=== PATIENT | male | born 1995 | race Caucasian/White ===

== ENCOUNTER 2022-05-25 14:56 | Observation (INO) ==
[2022-05-25 15:34] LABS: Basophils # (auto) 0.02 K/uL (0-0.2); Basophils % (auto) 0.2 %; Eosinophils # (auto) 0.02 K/uL (0-0.50); Eosinophils % (auto) 0.2 %; Hemoglobin 14.9 g/dl (14.0-18.0); Immature Granulocytes # (auto) 0.02 K/uL (0.00-0.02); Immature Granulocytes % (auto) 0.2 %; Lymphocytes # (auto) 1.17 K/uL (1.2-3.4); Lymphocytes % (auto) 13.9 %; Mean Corpuscular Hemoglobin 30.5 pg (25.0-34.0); Mean Corpuscular Hgb Conc 34.7 g/dL (32.0-36.0); Mean Corpuscular Volume 88.1 fL (80.0-100.0); Mean Platelet Volume 10.9 fL (9.4-12.4); Monocytes # (auto) 0.52 K/uL (0.24-0.82); Monocytes % (auto) 6.2 %; Neutrophils # (auto) 6.65 K/uL (1.4-6.5); Neutrophils % (auto) 79.3 %; Platelet Count 209 K/uL (130-400); RDW Coefficient of Variation 12.4 % (11.5-14.5); RDW Standard Deviation 39.9 fL (36.4-46.3); Red Blood Count 4.88 M/uL (4.63-6.08)
[2022-05-25 15:59] LABS: Albumin Globulin Ratio 1.8 (0.9-2); Albumin Level 5.1 gm/dl (3.4-5.0); BUN Creatinine Ratio 16.5 (10-20); Bilirubin,Total 0.7 mg/dl (0.2-1.0); Creatinine Clr Calc Pharmacy 125.3 ml/min; Est GFR (African American) 141.3 ml/min; Globulin 2.8 gm/dl (2.5-4.0); Total Protein 7.9 gm/dl (6.0-8.3)
[2022-05-25] MEDS ORDERED: KETOROLAC TROMETHAMINE 15 MG/ML VIAL IV ONE (16:19)
[2022-05-25] MEDS ORDERED: GI COCKTAIL ED USE PO ONE (16:19)
[2022-05-25] MEDS ORDERED: SODIUM CHLORIDE 0.9% 1000ML 2,000 ML IV ONE (16:19)
--- NOTE | 2022-05-25 16:22 | Emergency Department Note ---
Impression & Plan Acute cholecystitis, Abdominal pain ED Provider Note NAME: ASHUTOSH DUNN AGE: 26 SEX: M : 1995 ARRIVES VIA: Walk-In INFORMANT: Patient ED PROVIDER(S): Misha Avalos DO CHIEF COMPLAINT: abdominal pain HPI: Patient is a 26-year-old male who presents to the ER for right upper quadrant abdominal pain which has been present for the past several weeks off and on. Started this morning after eating around 9am. Patient denies any headache or change in vision. No chest pain or shortness of breath. No black stools or dark tarry stools. No bright red blood per rectum. Does admit to drinking alcohol fairly regularly as he works at the [email or web address]. He notes it is worse after fatty foods or alcohol. Sometimes it gets worse with drinking just regular liquids. No dysuria, urgency, or frequency. No other exacerbating or remitting factors. ROS: See above HPI for pertinent positives & negatives. A total of 10 systems reviewed and were otherwise negative. PAST MEDICAL HISTORY:See Below PAST SURGICAL HISTORY:See Below FAMILY HISTORY:See Below SOCIAL HISTORY:See Below HOME MEDICATIONS:See Below ALLERGIES:See Below VITALS:See Below PHYSICAL EXAMINATION: GENERAL: Sitting up in bed, alert, well appearing, well nourished, no distress, non-toxic EYE EXAM: normal conjunctiva. OROPHARYNX: no exudate, no erythema, lips, buccal mucosa, and tongue normal and mucous membranes are moist NECK: non-tender LUNGS: Clear to auscultation. Normal chest wall mechanics HEART: no murmurs, S1 normal and S2 normal ABDOMEN: abdomen soft, TTP in RUQ, normo-active bowel sounds, no masses, no rebound or guarding. BACK: Back is symmetrical on inspection and there is no deformity, no midline tenderness, no CVA tenderness. SKIN: no rashes and no bruising UPPER EXTREMITIES: upper extremities are grossly normal. LOWER EXTREMITIES: No pitting edema. NEURO EXAM: Normal sensorium, cranial nerves II-XII [grossly] intact, normal speech, no [gross] weakness of arms, no [gross] weakness of legs. [No drift. Finger to nose intact. Gross sensation intact.] MEDICAL DECISION MAKING: Patient is a 26-year-old male who presents ER for right upper quadrant abdominal pain. IV was established blood work was obtained. Labs showed no significant leukocytosis or anemia. BMP along with LFTs bilirubin and lipase was unremarkable. UA was clean. Ultrasound the abdomen pelvis shows a distended gallbladder with stone in the neck. He is acutely tender. He was given IV morphine and fluids. He was updated bedside. Discussed with general surgery who evaluated him at bedside and admitted him for further work-up. Discussed with Pt concerning signs and symptoms to watch out for. Pt was instructed to follow up with their PCP and discussed with the patient their option to return to the ED at anytime for persistent or worsening symptoms. The appropriate anticipatory guidance and out-patient management, including indications for return to the emergency department, were explained at length to the patient and understood. Triage Nursing notes reviewed. Limited review of prior medical records performed Vital Signs: reviewed and remarkable for no significant abnormalities Differential diagnosis: Differential diagnoses includes but is not limited to gastritis, peptic ulcer disease, GERD, gallbladder disease, pancreatitis, small bowel obstruction, acute coronary syndrome, pericarditis, ischemic bowel, irritable bowel disease, irritable bowel syndrome, appendicitis, diverticulitis, malignancy, hernia, urinary tract infection, torsion, perforation, trauma, infectious. ER treatment provided: See below Diagnostics interpreted by me: ECG: none Cardiac Monitoring: An order was placed for continuous cardiac monitoring. The monitor shows a rate of 60 with sinus rhythm. Laboratory studies: As stated above and show below. Imaging studies: Ultrasound as described above Consultation(s): Patient was seen and evaluated by Dr. Joey Yap and admitted for further workup Procedures: none Critical Care: None Past Med/Surg History Social History Smoking Status: Never smoker Feels Safe at Home: Yes Allergies Allergies Allergy/AdvReac Type Severity Reaction Status Date / Time No Known Allergies Allergy Unverified 05/25/22 17:55 Home Meds Home Medications Medication Instructions Recorded Confirmed No Known Home Medications 05/25/22 05/25/22 Results & Data (ED) Vital Signs Vital Signs - 24 hr 05/25/22 15:15 05/25/22 18:00 05/25/22 19:43 Temperature 36.9 C Temperature Source Oral Pulse Rate 72 Pulse Rate [Finger] 77 61 Pulse Rhythm [Finger] Regular Pulse Strength [Finger] Normal Respiratory Rate 18 17 18 Respiratory Effort / Characteristics Non-Labored Non-Labored Spontaneous Respiratory Depth Normal Normal Respiratory Pattern Regular Regular Blood Pressure 130/84 Blood Pressure [Right Arm] 127/66 143/94 H Blood Pressure Mean 99 Blood Pressure Mean [Right Arm] 86 110 Pulse Oximetry 98 97 98 Oxygen Delivery Method Room Air Room Air Sepsis Recent Fever Within 48 Hours No Sepsis New/Unexplained Change in Mental Status No Sepsis Action Taken by Nursing No Action Required 05/25/22 21:00 Temperature Temperature Source Pulse Rate Pulse Rate [Finger] 52 L Pulse Rhythm [Finger] Pulse Strength [Finger] Respiratory Rate 18 Respiratory Effort / Characteristics Non-Labored Spontaneous Respiratory Depth Normal Respiratory Pattern Regular Blood Pressure Blood Pressure [Right Arm] 130/77 Blood Pressure Mean Blood Pressure Mean [Right Arm] 94 Pulse Oximetry 98 Oxygen Delivery Method Room Air Sepsis Recent Fever Within 48 Hours Sepsis New/Unexplained Change in Mental Status Sepsis Action Taken by Nursing Laboratory Data Result diagrams: 05/25/22 15:23 05/25/22 15:23 Lab Results 05/25/22 05/25/22 05/25/22 Range/Units 15:23 15:23 16:19 WBC 8.40 (4.8-10.8) K/ul RBC 4.88 (4.63-6.08) M/uL Hgb 14.9 (14.0-18.0) g/dl Hct 43.0 (40.1-51.0) % MCV 88.1 (80.0-100.0) fL MCH 30.5 (25.0-34.0) pg MCHC 34.7 (32.0-36.0) g/dL RDW Std Deviation 39.9 (36.4-46.3) fL RDW Coeff of Marcela 12.4 (11.5-14.5) % Plt Count 209 (130-400) K/uL MPV 10.9 (9.4-12.4) fL Immature Gran % (Auto) 0.2 % Neut % (Auto) 79.3 % Lymph % (Auto) 13.9 % Ada % (Auto) 6.2 % Eos % (Auto) 0.2 % Baso % (Auto) 0.2 % Neut # (Auto) 6.65 H (1.4-6.5) K/uL Lymph # (Auto) 1.17 L (1.2-3.4) K/uL Ada # (Auto) 0.52 (0.24-0.82) K/uL Eos # (Auto) 0.02 (0-0.50) K/uL Baso # (Auto) 0.02 (0-0.2) K/uL Immature Gran # (Auto) 0.02 (0.00-0.02) K/uL Sodium 138 (136-145) mmol/L Potassium 4.0 (3.5-5.1) mmol/L Chloride 104 (98-107) mmol/L Carbon Dioxide 27 (21-32) mmol/L Anion Gap 7 (3-11) BUN 14 (6-23) mg/dl Creatinine 0.85 (0.6-1.4) mg/dl Est Cr Clr Drug Dosing 125.3 ml/min Est GFR ( Amer) 141.3 ml/min Est GFR (Non-Af Amer) 122.0 ml/min BUN/Creatinine Ratio 16.5 (10-20) Glucose 102 H (70-99(Fasting)) mg/dl Calcium 10.0 (8.5-10.1) mg/dl Total Bilirubin 0.7 (0.2-1.0) mg/dl AST 17 (13-39) U/L ALT 15 (7-52) U/L Alkaline Phosphatase 60 (34-104) U/L Total Protein 7.9 (6.0-8.3) gm/dl Albumin 5.1 H (3.4-5.0) gm/dl Globulin 2.8 (2.5-4.0) gm/dl Albumin/Globulin Ratio 1.8 (0.9-2) Lipase 13 (11-82) U/L Urine Color Yellow Urine Appearance Turbid A (Clear) Urine pH >= 9.0 H (4.5-7.5) Ur Specific [place] 1.017 (1.000-1.030) Urine Protein Negative (Negative) Urine Glucose (UA) Negative (Negative) Urine Ketones Negative (Negative) Urine Blood Negative (Negative) Urine Nitrite Negative (Negative) Urine Bilirubin Negative (Negative) Urine Urobilinogen Negative (Negative) Ur Leukocyte Esterase Negative (Negative) Urine WBC (Auto) 1-5 (0-5) /hpf Urine RBC (Auto) 0-4 (0-4) /hpf U Hyaline Cast (Auto) 1-5 (0-5) /lpf U Epithel Cells (Auto) 5-10 H (0-5) /lpf Urine Bacteria (Auto) Negative (Negative) SARS-CoV-2, RNA, NAAT (NEGATIVE) 05/25/22 Range/Units 17:45 WBC (4.8-10.8) K/ul RBC (4.63-6.08) M/uL Hgb (14.0-18.0) g/dl Hct (40.1-51.0) % MCV (80.0-100.0) fL MCH (25.0-34.0) pg MCHC (32.0-36.0) g/dL RDW Std Deviation (36.4-46.3) fL RDW Coeff of Marcela (11.5-14.5) % Plt Count (130-400) K/uL MPV (9.4-12.4) fL Immature Gran % (Auto) % Neut % (Auto) % Lymph % (Auto) % Ada % (Auto) % Eos % (Auto) % Baso % (Auto) % Neut # (Auto) (1.4-6.5) K/uL Lymph # (Auto) (1.2-3.4) K/uL Ada # (Auto) (0.24-0.82) K/uL Eos # (Auto) (0-0.50) K/uL Baso # (Auto) (0-0.2) K/uL Immature Gran # (Auto) (0.00-0.02) K/uL Sodium (136-145) mmol/L Potassium (3.5-5.1) mmol/L Chloride (98-107) mmol/L Carbon Dioxide (21-32) mmol/L Anion Gap (3-11) BUN (6-23) mg/dl Creatinine (0.6-1.4) mg/dl Est Cr Clr Drug Dosing ml/min Est GFR ( Amer) ml/min Est GFR (Non-Af Amer) ml/min BUN/Creatinine Ratio (10-20) Glucose (70-99(Fasting)) mg/dl Calcium (8.5-10.1) mg/dl Total Bilirubin (0.2-1.0) mg/dl AST (13-39) U/L ALT (7-52) U/L Alkaline Phosphatase (34-104) U/L Total Protein (6.0-8.3) gm/dl Albumin (3.4-5.0) gm/dl Globulin (2.5-4.0) gm/dl Albumin/Globulin Ratio (0.9-2) Lipase (11-82) U/L Urine Color Urine Appearance (Clear) Urine pH (4.5-7.5) Ur Specific [place] (1.000-1.030) Urine Protein (Negative) Urine Glucose (UA) (Negative) Urine Ketones (Negative) Urine Blood (Negative) Urine Nitrite (Negative) Urine Bilirubin (Negative) Urine Urobilinogen (Negative) Ur Leukocyte Esterase (Negative) Urine WBC (Auto) (0-5) /hpf Urine RBC (Auto) (0-4) /hpf U Hyaline Cast (Auto) (0-5) /lpf U Epithel Cells (Auto) (0-5) /lpf Urine Bacteria (Auto) (Negative) SARS-CoV-2, RNA, NAAT NEGATIVE (NEGATIVE) Administered Medications Discontinued Medications Al Hydrox/Mg Hydrox/Simethicone (Gi Cocktail Ed Use) 1 dose PO ONE ONE Stop: 05/25/22 16:20 Last Admin: 05/25/22 16:24 Dose: 1 dose Documented By: OAM Sodium Chloride (Nss 1000ml) 2,000 mls @ 999 mls/hr IV .Q2H1M ONE Stop: 05/25/22 18:19 Last Infusion: 05/25/22 18:55 Dose: 0 mls/hr Documented By: Admin: 05/25/22 16:24 Dose: 999 mls/hr Documented By: OAKeyla Cefoxitin Sodium (Mefoxin) 2,000 mg in 60 mls @ 100 mls/hr IV NOW STA Stop: 05/25/22 21:19 Last Infusion: 05/25/22 21:27 Dose: 0 mls/hr Documented By: Admin: 05/25/22 20:51 Dose: 100 mls/hr Documented By: AN Ketorolac Tromethamine (Ketorolac Tromethamine 15 Mg/Ml Vial) 15 mg IV NOW ONE Stop: 05/25/22 16:20 Last Admin: 05/25/22 16:24 Dose: 15 mg Documented By: OAKeyla Morphine Sulfate (Morphine Sulfate 10 Mg/Ml Carp/Vial) 6 mg IV NOW STA Stop: 05/25/22 17:42 Last Admin: 05/25/22 19:38 Dose: 6 mg Documented By: AN Ondansetron HCl (Ondansetron Inj 2 Mg/Ml 2 Ml Vial) 4 mg IV NOW STA Stop: 05/25/22 17:42 Last Admin: 05/25/22 19:38 Dose: 4 mg Documented By: AN Imaging Data Radiologist's Impression: Gallbladder Ultrasound 05/25/22 16:19 US gallbladder CLINICAL HISTORY: Right upper quadrant abdominal pain. COMPARISON STUDY: No previous studies for comparison. FINDINGS: Liver is sonographically normal. There is no biliary ductal dilatation. The common bile duct measures 5 mm in caliber. There are multiple gallstones within the gallbladder, including stones within the gallbladder neck. There is sludge within the gallbladder is well. Sonographic Hernandez sign could not be assessed for. Gallbladder is mildly distended. There is no gallbladder wall thickening. No pericholecystic fluid is present. Pancreatic body is normal. Head and tail are partially obscured. There is no right hydronephrosis. IMPRESSION: 1. Cholelithiasis including gallstones within the gallbladder neck. Mild gallbladder distention. No gallbladder wall thickening. Acute cholecystitis cannot be excluded. If indicated, a hepatobiliary scan could be obtained. 2. No biliary ductal dilatation. ACT 112: Negative or not required by law. Electronically signed by: Chris Bolton M.D. 05/25/2022 5:29 PM Discharge Plan Visit Data Chief Complaint: Abdominal Pain Stated Complaint: ABD PAIN ED Provider: Misha Avalos Discharge Problem: Acute cholecystitis, Abdominal pain Forms Stand Alone Forms: My [facility] [employer] Prescriptions Prescriptions: No Action No Known Home Medications Referrals Referrals: PCP,NO [Physician] -
[2022-05-25 16:32] LABS: Appearance Urine Turbid (Clear); Bacteria Urine Automated Negative (Negative); Bilirubin Urine Negative (Negative); Blood Urine Negative (Negative); Color Urine Yellow; Glucose Urine UA Negative (Negative); Ketones Urine Negative (Negative); Leukocyte Esterase Urine Negative (Negative); Nitrite Urine Negative (Negative); Protein Urine Negative (Negative); RBC Urine Automated 0-4 /hpf (0-4); Specific Gravity Urine 1.017 (1.000-1.030); Urobilinogen Urine Negative (Negative); pH Urine >= 9.0 (4.5-7.5)
--- NOTE | 2022-05-25 17:31 | Ultrasound Report ---
US gallbladder CLINICAL HISTORY: Right upper quadrant abdominal pain. COMPARISON STUDY: No previous studies for comparison. FINDINGS: Liver is sonographically normal. There is no biliary ductal dilatation. The common bile dionisio t measures 5 mm in caliber. There are multiple gallstones within the gallbladder, including stones wi thin the gallbladder neck. There is sludge within the gallbladder is well. Sonographic Hernandez sign co uld not be assessed for. Gallbladder is mildly distended. There is no gallbladder wall thickening. No pericholecystic fluid is present. Pancreatic body is normal. Head and tail are partially obscured. T here is no right hydronephrosis. IMPRESSION: 1. Cholelithiasis including gallstones within the gallbladder neck. Mild gallbladder distention. No g allbladder wall thickening. Acute cholecystitis cannot be excluded. If indicated, a hepatobiliary sca n could be obtained. 2. No biliary ductal dilatation. ACT 112: Negative or not required by law. Electronically signed by: Chris Bolton M.D. 05/25/2022 5:29 PM
[2022-05-25] MEDS ORDERED: ONDANSETRON INJ 2 MG/ML 2 ML VIAL IV STA (17:41)
[2022-05-25] MEDS ORDERED: MoRPHine SULFATE 10 MG/ML CARP/VIAL IV STA (17:41)
--- NOTE | 2022-05-25 18:28 | History & Physical Report ---
Date of Service May 25, 2022 Assessment & Plan (1) Acute cholecystitis: Plan: Plan is for laparoscopic cholecystectomy possible open cholecystectomy We will admit him to the hospital IV fluids pain medication antiemetics and antibiotics Will proceed tomorrow Patient may have clear liquids now and n.p.o. after midnight History of Present Illness Primary Care Provider: NO PCP 26-year-old male presenting the emergency room with right upper quadrant pain and tenderness for approximately 1 week off and on and now worse Work-up including ultrasound showing a distended gallbladder, with gallstones in the neck of the gallbladder Allergies Allergy/AdvReac Type Severity Reaction Status Date / Time No Known Allergies Allergy Unverified 05/25/22 17:55 Home Medications Medication Instructions Recorded Confirmed Type No Known Home Medications 05/25/22 05/25/22 History Past Med/Surg History Social History Smoking Status: Never smoker Feels Safe at Home: Yes Physical Exam Physical Exam: Patient does have some right upper quadrant tenderness His abdomen is otherwise flat and soft Constitutional: WD/WN, vitals as above well developed and well nourished; no acute distress Eyes: + anicteric sclerae Respiratory: normal respiratory effort; no respiratory distress Cardiovascular: Rate/Rhythm: regular rate Gastrointestinal (Abdomen): Percussion/Palpation: abdomen soft Musculoskeletal: Gait: normal gait Skin: no rashes, warm and dry Neurologic: awake Psychiatric: Orientation: alert Results & Data Results & Data ([facility]) Vital Signs (Past 12 Hours) Vital Signs Temp Pulse Pulse Resp BP BP Pulse Ox 05/25/22 18:00 77 17 127/66 97 05/25/22 15:15 36.9 C 72 18 130/84 98 O2 Del Method 05/25/22 18:00 05/25/22 15:15 Room Air PG Care Time/CCT Total # of Minutes Spent Total Time Spent with Patient: Total time spent is greater than 50% in coordination of care (as documented) at patient's floor/unit and/or counseling patient: Coding Level of Care Code 66100 Initial Inpt Care Lvl 3 Diagnoses Acute cholecystitis K81.0
[2022-05-25] MEDS ORDERED: cefOXitin 2,000 MG/60 ML BAG IV STA (20:44)
[2022-05-25] MEDS ORDERED: ONDANSETRON INJ 2 MG/ML 2 ML VIAL IV PRN (22:36)
[2022-05-25] MEDS ORDERED: HYDROCODONE/ACETAMOPHEN 5/325MG TAB PO PRN (22:36)
[2022-05-25] MEDS ORDERED: ACETAMINOPHEN 325 MG TAB PO PRN (22:36)
[2022-05-25] MEDS ORDERED: IBUPROFEN 600 MG TAB PO PRN (22:36)
[2022-05-25] MEDS: LACTATED RINGER'S 1,000 ML IV SCH (22:56)
--- NOTE | 2022-05-26 06:57 | History & Physical Bridge Note ---
Date of Service May 26, 2022 History & Physical Bridge Note I have examined the patient, reviewed the History & Physical and in the interval since the performance of the History & Physical I have noted the following changes of clinical significance: no changes noted
--- NOTE | 2022-05-26 07:01 | Anesthesiology Consultation ---
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 audit clerk initiated History Surgery Operation Date: 05/26/22 08:10 Proposed Procedures p Laparoscopic Cholecystectomy - Kavin Yap MD, FACS Height/Weight Height: 5 ft 7 in Weight: 77.2 kg Allergies Allergy/AdvReac Type Severity Reaction Status Date / Time No Known Allergies Allergy Unverified 05/25/22 17:55 Medications Home Medications Medication Instructions Recorded Confirmed Last Taken No Known Home Medications 05/25/22 05/25/22 Unknown Active Medications Generic Name Dose Route Start Last Admin Trade Name Freq PRN Reason Stop Dose Admin Hydrocodone Bitart/Acetaminophen 1 - 2 tab 05/25/22 22:36 05/25/22 23:25 Hydrocodone/Acetamophen 5/325mg Tab PO 06/08/22 22:35 2 tab Q4HWA PRN Administration Pain Cefoxitin Sodium 1,000 mg/ 60 mls @ 100 mls/hr 05/26/22 02:00 05/26/22 02:08 Dextrose IV 06/05/22 01:59 Infused Q6H SUDA Infusion Lactated Ringer's 1,000 mls @ 80 mls/hr 05/25/22 22:36 05/25/22 22:56 Lr IV 06/24/22 22:35 80 mls/hr .[id number] SUAD Administration Social History Smoking Status: Never smoker Hx Alcohol Use: Yes Alcohol type: beer and hard liquor alcohol intake frequency: a few times a week Hx Substance Use: Yes substance use type: marijuana Last Used Substance: Hours (ago) Last Used Substance Other:: PT SMOKES MARIJUANA DAILY Physical Exam Vital Signs Last Vital Signs Temp 98.1 F 05/25/22 22:25 Pulse 55 L 05/25/22 22:25 Resp 16 05/25/22 22:25 BP 134/81 05/25/22 22:25 Pulse Ox 100 05/25/22 22:25 O2 Del Method 05/25/22 22:25 Testing Laboratory Results 05/25/22 15:23 05/25/22 15:23 Urine Color Yellow 05/25/22 16:19 Urine Appearance Turbid (Clear) A 05/25/22 16:19 Urine pH >= 9.0 (4.5-7.5) H 05/25/22 16:19 Ur Specific [place] 1.017 (1.000-1.030) 05/25/22 16:19 Urine Protein Negative (Negative) 05/25/22 16:19 Urine Glucose (UA) Negative (Negative) 05/25/22 16:19 Urine Ketones Negative (Negative) 05/25/22 16:19 Urine Nitrite Negative (Negative) 05/25/22 16:19 Ur Leukocyte Esterase Negative (Negative) 05/25/22 16:19 Urine WBC (Auto) 1-5 /hpf (0-5) 05/25/22 16:19 Urine RBC (Auto) 0-4 /hpf (0-4) 05/25/22 16:19 U Hyaline Cast (Auto) 1-5 /lpf (0-5) 05/25/22 16:19 U Epithel Cells (Auto) 5-10 /lpf (0-5) H 05/25/22 16:19 Urine Bacteria (Auto) Negative (Negative) 05/25/22 16:19
[2022-05-26] MEDS: HYDROmorphone INJ 0.5 MG/0.5 ML SYR IV PRN (07:24)
[2022-05-26] MEDS ORDERED: MIDAZOLAM HCL 1 MG/ML 2ML VIAL ONE ×2 (08:02→09:25)
[2022-05-26] MEDS ORDERED: fentaNYL citrate 100 MCG/2 ML VIAL ONE ×3 (08:03→11:38)
[2022-05-26] MEDS ORDERED: PROPOFOL IV EMULSION 10 MG/ML 20 ML VIAL IV ONE ×2 (08:31→09:25)
[2022-05-26] MEDS ORDERED: ROCURONIUM BROMIDE 10 MG/ML 5 ML VIAL IV ONE (08:31)
[2022-05-26] MEDS ORDERED: LIDOCAINE 2% MPF LOCAL 5 ML VIAL INFIL ONE (08:31)
[2022-05-26] MEDS ORDERED: NEOSTIGMINE METHYLSULFATE 1 MG/ML 10ML VIAL ONE ×2 (08:32→09:25)
[2022-05-26] MEDS ORDERED: ONDANSETRON INJ 2 MG/ML 2 ML VIAL ONE ×2 (08:32→09:25)
[2022-05-26] MEDS ORDERED: GLYCOPYRROLATE 0.2 MG/ML VIAL ONE ×2 (08:32→09:25)
[2022-05-26] MEDS ORDERED: DEXAMETHASONE SOD INJ 4 MG/ML VIAL ONE (09:25)
[2022-05-26] MEDS ORDERED: LIDOCAINE 2% 2 ML VIAL/AMP(20MG/ML) INFIL ONE (09:25)
[2022-05-26] MEDS ORDERED: ACETAMINOPHEN 1000 MG/100 ML IV IV ONE (10:00)
[2022-05-26] MEDS ORDERED: ePHEDrine sulfate 50 MG/ML AMP IV PRN (10:08)
[2022-05-26] MEDS ORDERED: ATROPINE SULFATE 0.1 MG/ML 10ML SYR IV PRN (10:08)
[2022-05-26] MEDS ORDERED: fentaNYL citrate 100 MCG/2 ML VIAL IV PRN (10:08)
[2022-05-26] MEDS ORDERED: ONDANSETRON INJ 2 MG/ML 2 ML VIAL IV PRN (10:08)
[2022-05-26] MEDS ORDERED: BUPIVACAINE 0.5 % 5 MG/1 ML MPF 30ML VIAL ONE (10:25)
[2022-05-26] MEDS ORDERED: ACETAMINOPHEN 1,000 MG/100 ML VIAL IV ONE (11:32)
--- NOTE | 2022-05-26 11:32 | Post Operative Brief Note ---
PG Immediate Post Op with CF Date of Surgery May 26, 2022 Pre & Post Diagnosis Operation Date: 05/26/22 08:10 Pre-Op Diagnosis: Acute Cholecystitis Post-Op Diagnosis: Acute Cholecystitis, and chronic cholecystitis I identified the patient and participated in the time-out.: Yes Procedure Operation Date: 05/26/22 08:10 Actual Procedures p Laparoscopic Cholecystectomy(Not Applicable) - Kavin Yap MD, FACS Surgeon Kavin Yap MD, FACS Agency Development Manager Todd Ureña Estimated Blood Loss 10 Findings Consistent with Post-Op Diagnosis Patient had acute cholecystitis with hydrops, stone in the neck of the gallbladder and also evidence of acute and chronic cholecystitis Specimens Specimen Description: A. Gallbladder
--- NOTE | 2022-05-26 12:04 | Anesthesiology Progress Note ---
Date of Service May 26, 2022 Anesthesia Post Procedure Vital Signs Vital Signs: Temp Pulse Pulse Pulse Resp BP BP 05/26/22 12:00 52 L 16 142/95 H 05/26/22 11:50 51 L 14 148/95 H 05/26/22 11:42 97.2 F L 73 16 149/91 H 05/26/22 07:28 98.2 F 54 L 20 129/77 05/25/22 22:25 98.1 F 55 L 16 134/81 05/25/22 21:00 52 L 18 130/77 05/25/22 19:43 61 18 143/94 H 05/25/22 18:00 77 17 127/66 05/25/22 15:15 98.4 F 72 18 130/84 Pulse Ox O2 Del Method O2 Flow Rate 05/26/22 12:00 96 Room Air 05/26/22 11:50 93 Room Air 05/26/22 11:42 96 Oxymask 4 05/26/22 07:28 99 05/25/22 22:25 100 Room Air 05/25/22 21:00 98 Room Air 05/25/22 19:43 98 Room Air 05/25/22 18:00 97 05/25/22 15:15 98 Room Air Pain Intensity Medial Abdomen: Pain Intensity: 2 Transfer of Care Handoff Completed per policy Notes Mental Status: alert / awake / arousable and participated in evaluation Patient Amnestic to Procedure: Yes Nausea / Vomiting: adequately controlled Pain: adequately controlled Airway Patency, RR, SpO2: stable & adequate BP & HR: stable & adequate Hydration State: stable & adequate Anesthetic Complications: no major complications apparent and Pt Satisfied with anesthetic care
[2022-05-26] MEDS: oxyCODONE HCL IR 5 MG TAB (IMMEDIATE RELEASE) PO PRN ×3 (13:07→23:18)
[2022-05-26] MEDS: LACTATED RINGER'S 1,000 ML IV SCH (13:34)
--- NOTE | 2022-05-26 18:57 | Operative Report (OR) ---
DATE OF OPERATION: 05/26/2022. NAME OF OPERATION: Laparoscopic cholecystectomy. PREOPERATIVE DIAGNOSIS: Acute cholecystitis. POSTOPERATIVE DIAGNOSIS: Acute cholecystitis with chronic cholecystitis and hydrops. STAFF SURGEON: Kavin Yap MD. DRESSING ROOM ATTENDANT: Elvin Ureña PA-C. ANESTHESIA: General. DESCRIPTION OF PROCEDURE: The patient was brought in the operating room and placed on the operating table in supine position. My surveyor instrument assistant helped with prepping, draping, removal of the gallbladder, an d closure of the wounds. A 0.5% plain Marcaine was used to anesthetize all incisions. Incision was made near the umbilicus, carrying dissection down to the fascia, placing a Veress needle, producing p neumoperitoneum. The patient had very thick dense fascia. It was somewhat difficult to place the ca nnula and an 11 mm port was placed to this level. Camera passed under observation and then 5 mm ports were placed, one cephalad and two laterally under visualization. Gallbladder was very distended and inflamed. It was aspirated of bile, found to be clear, indicating hydrops. Gallbladder was retract ed. Dissection carried out to the michelle hepatis indicating some adhesions in this level consistent w ith chronic cholecystitis. Cystic duct and cystic artery were identified, clipped, and transected an d the gallbladder dissected away from the liver bed in the usual fashion. Gallbladder was placed in an Endobag. After appropriate hemostasis and irrigation, the Endobag was removed through the umbilic al site. We did have to enlarge the fascial defect and skin because of the size of the gallbladder a nd the size of the stone. There was a stone in the neck of the gallbladder. Fascia at the umbilicus was closed using 0 PDS suture and the skin reapproximated using subcuticular 4-0 Monocryl with Dermab ond. The patient was transferred to recovery room in stable condition. Job ID: [id number]
[2022-05-26] MEDS: HEPARIN SOD 5,000 UNIT/0.5 ML VIAL SQ SCH (20:21)
[2022-05-27] MEDS: HYDROmorphone INJ 0.5 MG/0.5 ML SYR IV PRN (02:15)
--- NOTE | 2022-05-27 02:29 | Communication Note ---
Date of Service: May 27, 2022 I was called by nurse stating that patient had chest pain. I visited with the patient at the bedside and at the time of my exam I question the patient where his pain was located. He notes that the pain is in his upper abdomen/epigastric area. He does note that the pain is worse when he takes a deep breath and it does radiate somewhat to his shoulders. He does not note any substernal chest pain and he notes that the pain does not radiate down his arms. He does not report any nausea or vomiting. I discussed with the nurse and the patient has been afebrile and hemodynamically stable. There have been no recorded episodes of hypotension or tachycardia. He is also not had any recorded episodes of hypoxia. On exam patient's blood pressure is 143/75 with a pulse in the 80s. His pulse is regular. Respirations are 18 and nonlabored and the patient is afebrile. Pulse ox was 98% on room air. Cardiovascular exam reveals regular rate and rh ythm. Pulmonary exam revealed breath sounds were slightly decreased at bases but breath sounds were present. Twelve-lead EKG was performed. This showed sinus bradycardia/sinus arrhythmia. There are no ST segment elevation or depressions. A chest x-ray was performed that did not show any free air under the diaphragms and there is no evidence of pneumothorax. I suspect that the patient's pain is likely postoperative pain secondary to recent surgery. I suspect that the shoulder pain he is experiencing is is due to the irritation of his diaphragm. As the patient is not hypoxic, hypotensive, or tachycardic I have low suspicion that patient has a pulmonary embolism. Also, the patient has no EKG changes indicative of acute ischemia and due to his young age I have low clinical index of suspicion for cardiac ischemia. We will continue to monitor the patient closely. I will also asked the hospitalist to evaluate the patient to see if they have any other additional recommendations.
[2022-05-27] MEDS: LACTATED RINGER'S 1,000 ML IV SCH ×2 (02:54→14:39)
--- NOTE | 2022-05-27 03:12 | Hospitalist Consultation ---
Date of Consultation May 27, 2022 Assessment & Plan (1) Abdominal pain: 26yo male without significant PMH on POD#1 s/p laparoscopic cholecystectomy for acute cholecystitis. The hospitalist service was consulted after patient developed pleuritic epigastric/lower central chest pain which radiated to his right shoulder. Patient's pain has since resolved. Chest/epigastric pain Patient on POD#1 s/p laparascopic cholecystectomy who then developed epigastric/lower central chest pain, though this has since resolved VSS EKG (while patient was complaining of pain): sinus bradycardia (rate 56) without ischemic change CXR without acute process; no free air appreciated hsTroponin negative - no further repeat indicated Low suspicion for ACS given unremarkable EKG, pain being pleuritic in nature, and having already resolved Low suspicion for PE given patient is afebrile, not tachycardic, not hypoxic, and is on heparin Agree with surgery team that patient's pain was likely related to yesterday's operation, with shoulder pain likely secondary to diaphragmatic irritation No additional intervention indicated at this time Feel free to reach out to the hospitalist service with further questions Supervising Physician Co-Signing Physician Notes Attending addendum: I have physically seen this patient, have supervised the medical residents activities, and agree with the H&P unless as otherwise noted. Assessment and Plan: Chest/epigastric pain- Pain developed status post laparoscopic cholecystectomy day #1 EKG with no acute findings Chest x-ray negative Highly sensitive troponin negative Low likelihood that there is any cardiac related issue Likely secondary to surgical process yesterday No additional work-up needed at this time Contact hospital service with any further questions History of Present Illness Attending Physician: Kavin Yap MD, [facility] History of Present Illness 26yo male without significant PMH presented to [facility] found to have acute cholecystitis, who is currently on POD#1 s/p laparoscopic cholecystectomy. The hospitalist service was consulted after patient developed epigastric/lower central chest pain which radiated to his right shoulder. The pain was pleuritic in nature, did not radiate to the arms or jaw, and was not associated with nausea, vomiting, or other symptoms. Patient's vitals have been stable since surgery yesterday. Upon my interview, patient notes that the upper abdominal/lower central chest pain has almost completely resolved; he suspects the pain was due to gas. Patient denies fever, chills, headache, changes in vision, SOB, nausea, vomiting, diarrhea, or other symptoms. Allergies Allergy/AdvReac Type Severity Reaction Status Date / Time No Known Allergies Allergy Unverified 05/25/22 17:55 Home Medications Medication Instructions Recorded Confirmed Type oxycodone-acetaminophen 5 mg-325 1 - 2 tab PO Q4H PRN pain, initial 05/27/22 Rx mg tablet (Percocet) therapy, max 6 daily #15 tabs Patient History Surgical History (Updated 05/27/22 @ 10:32 by Lorrie Archer RN) Hx laparoscopic cholecystectomy (05/26/22) Laparoscopic cholecystectomy. Dr. Yap Social History Smoking Status: Never smoker Hx Alcohol Use: Yes Alcohol type: beer and hard liquor Hx Substance Use: Yes Last Used Substance: Hours (ago) Last Used Substance Othe r:: PT SMOKES MARIJUANA DAILY Preferred Language: Divehi Communication Ability: Effective Visual Impairment: No Limitations Structural Analyst Required: No Beliefs That Will Affect Care: None Current Living Situation Comment: 2 ROOMATES Feels Safe at Home: Yes Assistive Devices: None Physical Exam Physical Exam: Constitutional: well-appearing, no acute distress CV: regular rhythm, no murmur appreciated, extremities well-perfused, no LE edema Resp: CTABL, no wheezes/rales/rhonchi appreciated, no increased work of breathing GI: soft, nondistended, moderate epigastric tenderness, BS normoactive MSK: no gross deformities appreciated Neuro: alert, oriented, no focal neurologic deficit appreciated Results & Data Results & Data ([facility]) Vital Signs (Past 12 Hours) Vital Signs Temp Pulse Resp BP Pulse Ox O2 Del Method 05/27/22 01:56 37.1 C 87 18 143/75 H 93 Room Air 05/26/22 22:41 37.0 C 54 L 18 121/64 98 Room Air 05/26/22 15:41 36.8 C 84 14 132/77 98 Room Air Resident Activity Tracking Resident Involvement: 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
--- NOTE | 2022-05-27 07:26 | XRay Report ---
XR chest 1V portable CLINICAL HISTORY: Atypical chest pain. COMPARISON STUDY: No previous studies for comparison. FINDINGS: Lung volumes are normal. Lungs are clear. There is no pneumothorax or pleural effusion. Car diac size is normal. Mediastinal contours are normal. There is no evidence for pulmonary edema. IMPRESSION: No acute cardiopulmonary findings. ACT 112: Negative or not required by law. Electronically signed by: Chris Bolton M.D. 05/27/2022 7:25 AM
[2022-05-27] MEDS: oxyCODONE HCL IR 5 MG TAB (IMMEDIATE RELEASE) PO PRN ×2 (07:36→12:43)
[2022-05-27] MEDS: HEPARIN SOD 5,000 UNIT/0.5 ML VIAL SQ SCH (07:42)
--- NOTE | 2022-05-27 08:30 | Surgery Progress Note ---
Date of Service May 27, 2022 Assessment & Plan (1) S/P laparoscopic cholecystectomy: Plan: Patient had severe acute and chronic cholecystitis from a stone in the neck of the gallbladder He actually had hydrops which indicates significant obstruction He seems to be doing better this morning His abdomen is flat and soft We will decrease his IV fluid See how he does this morning and possible discharge home later today Admission and Anticipated Discharge Date Admission Date: May 25, 2022 Results & Data ([facility]) Vital Signs (Past 12 Hours) Vital Signs Temp Pulse Resp BP Pulse Ox O2 Del Method 05/27/22 07:06 37.2 C 73 18 153/88 H 98 Room Air 05/27/22 01:56 37.1 C 87 18 143/75 H 93 Room Air 05/26/22 22:41 37.0 C 54 L 18 121/64 98 Room Air PG Care Time/CCT Total # of Minutes Spent Total Time Spent with Patient: Total time spent is greater than 50% in coordination of care (as documented) at patient's floor/unit and/or counseling patient: Coding Level of Care Code None Diagnoses S/P laparoscopic cholecystectomy Z90.49
[2022-05-27 12:55] LABS: Basophils # (auto) 0.02 K/uL (0-0.2); Basophils % (auto) 0.2 %; Eosinophils # (auto) 0.01 K/uL (0-0.50); Eosinophils % (auto) 0.1 %; Hematocrit (blood only) 40.6 % (40.1-51.0); Immature Granulocytes # (auto) 0.01 K/uL (0.00-0.02); Immature Granulocytes % (auto) 0.1 %; Lymphocytes # (auto) 2.03 K/uL (1.2-3.4); Lymphocytes % (auto) 22.2 %; Mean Corpuscular Hemoglobin 30.8 pg (25.0-34.0); Mean Corpuscular Hgb Conc 34.5 g/dL (32.0-36.0); Mean Corpuscular Volume 89.2 fL (80.0-100.0); Mean Platelet Volume 10.8 fL (9.4-12.4); Monocytes # (auto) 0.68 K/uL (0.24-0.82); Monocytes % (auto) 7.4 %; Neutrophils # (auto) 6.39 K/uL (1.4-6.5); Platelet Count 189 K/uL (130-400); RDW Coefficient of Variation 12.3 % (11.5-14.5); RDW Standard Deviation 40.1 fL (36.4-46.3); Red Blood Count 4.55 M/uL (4.63-6.08); White Blood Count 9.14 K/ul (4.8-10.8)
[2022-05-27 13:29] LABS: Albumin Globulin Ratio 1.9 (0.9-2); Albumin Level 4.3 gm/dl (3.4-5.0); BUN Creatinine Ratio 11.5 (10-20); Bilirubin Direct 0.1 mg/dl (0-0.2); Bilirubin,Total 0.5 mg/dl (0.2-1.0); Calcium 9.7 mg/dl (8.5-10.1); Creatinine Clr Calc Pharmacy 122.4 ml/min; Est GFR (Non-African American) 120.8 ml/min; Globulin 2.3 gm/dl (2.5-4.0); Phosphorus 3.7 mg/dl (2.5-4.9); Potassium 3.5 mmol/L (3.5-5.1); Total Protein 6.6 gm/dl (6.0-8.3)
--- NOTE | 2022-05-27 14:08 | Electrocardiogram Report ---
Test Reason : Blood Pressure : / mmHG Vent. Rate : 056 BPM Atrial Rate : 056 BPM P-R Int : 128 ms QRS Dur : 080 ms QT Int : 434 ms P-R-T Axes : 000 087 123 degrees QTc Int : 418 ms Sinus bradycardia with sinus arrhythmia Nonspecific ST abnormality Abnormal ECG No previous ECGs available Confirmed by Surya Love ([id number]) on 05/27/2022 2:08:35 PM Referred By: REFERRED SELF Confirmed By:Surya Love
--- NOTE | 2022-05-28 19:07 | Billing Data ---
Date of Service May 28, 2022 Coding Level of Care Code 38719 Inpt Consult Level 2
--- NOTE | 2022-05-29 13:57 | Discharge Summary ---
Date of Service May 27, 2022 Admission HPI Per Admitting Provider 26-year-old male presenting the emergency room with right upper quadrant pain and tenderness for approximately 1 week off and on and now worse Work-up including ultrasound showing a distended gallbladder, with gallstones in the neck of the gallbladder Principal Diagnosis Acute cholecystitis Discharge Exam Constitutional WD/WN, vitals as above Gastrointestinal (Abdomen) Inspection/Auscultation: + abdominal surgical incision (dry) Percussion/Palpation: abdomen soft Discharge Data Allergies Allergy/AdvReac Type Severity Reaction Status Date / Time No Known Allergies Allergy Unverified 05/25/22 17:55 Consultations 05/25/22 17:41 ED Decision to Admit Stat 05/27/22 02:29 Consult Hospitalist Routine Procedures Performed Operation Date: 05/26/22 08:10 Actual Procedures p Laparoscopic Cholecystectomy(Not Applicable) - Kavin Yap MD, FACS Ordered Studies 05/25/22 16:19 US gallbladder Stat Hospital Course (1) Acute cholecystitis: 26-year-old male presented to the ER with abdominal pain. White count was normal although ultrasound was consistent with acute cholecystitis. He was admitted the surgical floor overnight and taken the operating room in the morning for laparoscopic cholecystectomy. He did have acute on chronic cholecystitis as well as hydrops. He was returned to the surgical floor for an additional night of observation and antibiotics. The next day he was able to advance diet tolerate oral oral analgesics. He was stable for discharge home later that afternoon. Total Time Total Time Spent Total Time Spent (In Minutes): 15 Discharge Plan Discharge Items Patient Disposition: Home - Self-Care Reason For Visit: CHOLECYSTITIS Discharge Diagnosis: laparoscopic cholecystectomy Activity: Resume your previous activity Lifting: No more than 10 pounds Bathing Comment: ok to shower Exercise/Sports: Wait until after follow-up appointment Driving/Machine Use: Resume 3 days after discharge Non-emergency contact: Surgeon Call non-emergency contact if: you have any medication questions, your pain is not controlled, you have a fever, your temperature is above 101.5 and your wound has increased redness Follow-up/Referrals: Kavin Yap MD, FACS [Physician] - 06/05/22 1:15 pm (Please call to make an appt in 1-2 weeks) Monika Neumann MD [Primary Care Provider] - Diet: Regular Addtl Attending Provider Instructions: Pending Studies at Discharge: No Stand-Alone Forms: Work/School Release (ED), My [facility], Work/School Release, Smoking Cessation Medications and DC Order Prescriptions: New oxycodone-acetaminophen [Percocet] 5-325 mg tablet 1 - 2 tab PO Q4H PRN (Reason: pain, initial therapy, max 6 daily) Qty: 15 0RF Discharge Orders: Discharge Order (Routine); Ordered 05/27/22 Ordered By: Elvin Myers/Other Patient Handouts: Having Laparoscopic Cholecystectomy Admission Data Admit Date/Time: 05/25/22 22:18 Attending Provider: Kavin Yap Admit Provider: Kavin Yap Primary Care Provider: Monika Neumann Other Providers: Kavin Yap ; Loyd Dixon Other Interventions: Discharge Summary Assessment (RN) Last Done: 05/27/22 13:49 Coding Level of Care Code D/C DAY MANAGEMENT <30 MINS Diagnoses Acute cholecystitis K81.0
== END 2022-05-27 15:34 | disposition home or self-care (01) ==
LOC: ED 14:56 → 3W 22:16 → INTOOBSV 22:18
DX: K80.10 Calculus of gallbladder with chronic cholecystitis without obstruction